=== PATIENT | female | born 1990 | race Hispanic/Latino ===

== ENCOUNTER 2018-09-01 14:53 | Emergency (ER) | payer OTHER ==
[~2018-09-01] VITALS: Ht 154.9 cm; Wt 73.9 kg
[2018-09-01] MEDS ORDERED: PRENATAL FORMU1 EAC3 PO (15:03)
[2018-09-01] MEDS ORDERED: VITAMIN D1000 UNIT PO (15:03)
[2018-09-01] MEDS ORDERED: IRON 100 PLUS1 EACH PO (15:04)
== END 2018-09-01 15:10 | disposition home or self-care (01) ==
LOC: ED 14:53
DX: K08.89 Other specified disorders of teeth and supporting structures (principal)

== ENCOUNTER 2019-01-29 11:50 | Emergency (ER) | payer OTHER ==
[~2019-01-29] VITALS: Ht 154.9 cm; Wt 73.9 kg
[~2019-01-29 11:50] MED LIST: IRON 100 PLUS1 EACH PO; PRENATAL FORMU1 EAC3 PO; VITAMIN D1000 UNIT PO
== END 2019-01-29 13:49 | disposition home or self-care (01) ==
LOC: ED 11:50
DX: B34.9 Viral infection, unspecified (principal); H92.02 Otalgia, left ear; Z87.891 Personal history of nicotine dependence; Z88.6 Allergy status to analgesic agent
CPT/HCPCS: 99283

== ENCOUNTER 2021-09-16 07:14 | Emergency (ER) | payer OTHER ==
[~2021-09-16] VITALS: Ht 154.9 cm; Wt 86.2 kg
[2021-09-16] MEDS ORDERED: PROMETRIUM200 MG PO (13:34)
== END 2021-09-16 14:00 | disposition home or self-care (01) ==
LOC: ED 07:14
DX: N93.8 Other specified abnormal uterine and vaginal bleeding (principal); Z87.891 Personal history of nicotine dependence; Z88.8 Allergy status to other drugs, medicaments and biological substances
CPT/HCPCS: 36415; 76830; 76856; 80053; 84703; 85025; 96374; 99284-25; J1885; J7030

== ENCOUNTER 2023-04-27 07:08 | Emergency (ER) | payer OTHER ==
[~2023-04-27] VITALS: Ht 154.9 cm; Wt 86.2 kg
[~2023-04-27 07:08] MED LIST changes: +CEPHALEXIN500 M1 PO; +PREDNISONE20 MG PO; +PROMETRIUM200 MG PO
--- OUTSIDE RECORDS SUMMARY | 2023-04-27 07:16 | XMS ---
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 Marycarmen has no Care Guidelines for this patient. [facility] (12 MO.) [facility] T[facility] NOTE: Visits indicate total known visits. ED/UCC VISIT TRACKING (12 MO.) [facility] COMPLAINT: - POSS UTI, PAINFUL URINATION, R FLANK PAIN 04/23/2023 11:19 [facility] TYPE: Emergency COMPLAINT: - VAGINAL BLEEDING DIAGNOSES: - Abnormal uterine and vaginal bleeding, unspecified - Other specified abnormal uterine and vaginal bleeding - Personal history of nicotine dependence 05/21/2022 07:47 [facility] TYPE: Emergency COMPLAINT: - LOWER BACK/ABD/GROIN PAIN DIAGNOSES: - Allergy status to analgesic agent - Exposure to other rapid changes in air pressure during ascent, initial encounter - Low back pain, unspecified - Personal history of nicotine dependence - Strain of muscle, fascia and tendon of lower back, initial encounter - Urinary tract infection, site not specified INPATIENT VISIT TRACKING (12 MO.) No inpatient visits to display in this time frame [email or web address]
[2023-04-27 07:34] LABS: BILIRUBIN, URINE NEGATIVE (negative); BLOOD/HGB, URINE LARGE (Negative); KETONE, URINE NEGATIVE (Negative); LEUK ESTERASE, URINE LARGE (negative); NITRITE, URINE NEGATIVE (negative)
[2023-04-27 07:44] LABS: BASOPHILS 1.5 % (0-2); EOSINOPHILS 0.6 % (0-6); HEMATOCRIT 35.2 % (35.0-50.0); HEMOGLOBIN 11.3 g/dL (12.0-18.0); LYMPHOCYTES 18.9 % (24-44); MCH 23.9 (27-36); MCHC 32.2 g/dl (30-36); MCV 74.2 fl (81-99); MONOCYTES 5.8 % (0-12); NEUTROPHILS 73.2 % (39-80); PLATELET COUNT 310 K/uL (140-440); RBC 4.74 M/ul (4.3-5.7); RDW 15.1 (10.5-15.0)
[2023-04-27 07:44] LABS: EPITHELIAL CELLS, URINE SQUAMOUS 1+ /lpf (0-1+); RED BLOOD CELLS, URINE 0-1 /hpf (0-5); WHITE BLOOD CELLS, URINE >50 /HPF (0-5)
[2023-04-27 07:45] LABS: CRYSTALS, URINE NONE SEEN (0-1+)
[2023-04-27 07:46] LABS: BACTERIA, URINE 1+ /hpf (negative); CASTS, URINE NONE SEEN \\lpf; COLLECTION TYPE, URINE CLEAN CATCH; REFLEX CULTURE, URINE Yes (No)
[2023-04-27 08:00] LABS: ANION GAP 14.5 (7-21); CALCIUM 8.8 mg/dL (8.5-10.1); CREATININE, SERUM 0.65 mg/dL (0.55-1.02); POTASSIUM 3.5 mmol/L (3.5-5.1)
[2023-04-27] MEDS ORDERED: ONDANSETRON ODT4 MG PO (09:01)
[2023-04-27] MEDS ORDERED: NAPROSYN500 MG PO (09:01)
[2023-04-27] MEDS ORDERED: CEPHALEXIN500 M1 PO (09:01)
[2023-04-27 09:12] VITALS: BP 126/90
[2023-04-27 10:08] LABS: N. GONORRRHOEAE BY PCR NOT DETECTED (NOT DETECT)
== END 2023-04-27 09:10 | disposition home or self-care (01) ==
LOC: ED 07:08
PROVIDERS: Emergency Medicine
DX: N12 Tubulo-interstitial nephritis, not specified as acute or chronic (principal); Z87.891 Personal history of nicotine dependence; Z79.899 Other long term (current) drug therapy
CPT/HCPCS: 36415; 76830; 76856; 80048; 81001; 84703; 85025; 87088; 87491; 96374; 96375; 99284-25; J0696; J1885; J2405; J7030

== ENCOUNTER 2023-10-07 09:17 | Emergency (ER) | payer OTHER ==
[~2023-10-07] VITALS: Ht 154.9 cm; Wt 75.2 kg
[~2023-10-07 09:17] MED LIST changes: +NAPROSYN500 MG PO; +ONDANSETRON ODT4 MG PO
[2023-10-07 10:05] LABS: BASOPHILS 0.1 % (0-2); EOSINOPHILS 1.4 % (0-6); HEMATOCRIT 28.9 % (35.0-50.0); HEMOGLOBIN 9.6 g/dL (12.0-18.0); LYMPHOCYTES 24.5 % (24-44); MCH 23.5 (27-36); MCHC 33.3 g/dl (30-36); MCV 70.4 fl (81-99); MONOCYTES 7.8 % (0-12); NEUTROPHILS 66.2 % (39-80); PLATELET COUNT 263 K/uL (140-440); RDW 16.1 (10.5-15.0)
[2023-10-07 10:21] LABS: ALBUMIN 2.9 g/dL (3.4-5.0); ALBUMIN/GLOBULIN RATIO 0.71 (1.1-2.4); BILIRUBIN, TOTAL 0.5 ng/dL (0.2-1.0); BUN/CREATININE RATIO 12.5 (6.0-28.6); CALCIUM 8.2 mg/dL (8.5-10.1); CREATININE, SERUM 0.48 mg/dL (0.55-1.02)
[2023-10-07 10:55] LABS: BILIRUBIN, URINE NEGATIVE (negative); BLOOD/HGB, URINE NEGATIVE (Negative); KETONE, URINE NEGATIVE (Negative); LEUK ESTERASE, URINE NEGATIVE (negative); NITRITE, URINE POSITIVE (negative)
[2023-10-07 11:01] LABS: BACTERIA, URINE 4+ /hpf (negative); CASTS, URINE NONE SEEN \\lpf; COLLECTION TYPE, URINE CLEAN CATCH; CRYSTALS, URINE NONE SEEN (0-1+); EPITHELIAL CELLS, URINE SQUAMOUS 3+ /lpf (0-1+); RED BLOOD CELLS, URINE 0-1 /hpf (0-5); REFLEX CULTURE, URINE No (No)
[2023-10-07] MEDS ORDERED: CEPHALEXIN500 M1 PO (12:11)
[2023-10-07] MEDS ORDERED: POTASSIUM CHLORIDE 10 MEQ TABCR PO ONE (12:15)
[2023-10-07] MEDS ORDERED: CEPHALEXIN MONOHYDRATE 500 MG CAP PO ONE (12:15)
[2023-10-07 12:20] LABS: N. GONORRRHOEAE BY PCR NOT DETECTED (NOT DETECT)
[2023-10-07 12:21] VITALS: BP 122/80
[2023-10-08 10:18] LABS: RAPID PLASMA REAGIN (RPR) Non Reactive (Non Reactive)
[2023-10-08 16:25] LABS: BETA-HCG QUANT TUMOR MARKER 102262 IU/L (0-5)
== END 2023-10-07 12:21 | disposition home or self-care (01) ==
LOC: ED 09:17
PROVIDERS: Emergency Medicine
DX: O23.41 Unspecified infection of urinary tract in pregnancy, first trimester (principal); N39.0 Urinary tract infection, site not specified; O99.011 Anemia complicating pregnancy, first trimester; D64.9 Anemia, unspecified; O99.281 Endocrine, nutritional and metabolic diseases complicating pregnancy, first trimester; E87.6 Hypokalemia; Z3A.08 8 weeks gestation of pregnancy; Z87.891 Personal history of nicotine dependence
CPT/HCPCS: 36415; 76801; 80053; 81001; 84702; 84703; 85025; 87491; 99284-25; A9270